=== PATIENT | male | born 1975 | race Caucasian/White ===

== ENCOUNTER 2019-03-11 10:53 | Outpatient (CLI) | payer BC ==
--- NOTE | 2019-03-11 13:46 | ULT ---
THYROID ULTRASOUND: HISTORY: Thyroid cyst. FINDINGS: Real-time imaging of the right and left lobes of the gland were performed. The right lobe measures 2 .6 x 3.1 x 5.7 cm and the left lobe 2.5 x 3 x 5.9 cm. Within the right lobe is a 6 x 13 mm complex c ystic lesion which appears to have some internal debris, although this may represent a solid componen t. It is wider than tall with fairly smooth borders and no internal calcifications. This would clarence espond to TIRADS 2 lesion for which no further workup at this size would be required. There is a 7 x 12 mm nodule within the left lobe which is felt to most likely be solid, although could be a complex cystic lesion, slightly hypoechoic to surrounding thyroid tissue wider than tall with smooth borders and no calcifications. This would correspond to a TIRADS 4 lesion which in this size range followup would be recommended. The gland is diffusely heterogeneous. IMPRESSION: Bilateral thyroid nodules. Followup ultrasound in 12 months would be recommended. POS: [facility]
== END 2019-03-11 10:54 | disposition home or self-care (01) ==
LOC: SCSULT 10:53
PROVIDERS: ATTEND Family Medicine
DX: E04.2 Nontoxic multinodular goiter (principal)
CPT/HCPCS: 76536